=== PATIENT | female | born 1935 | race Caucasian/White ===

== ENCOUNTER → 2023-04-28 06:28 | Day surgery (SDC) | payer BC, SELFPAY ==
[2023-04-28 08:16] LABS: Glucose - Point of Care 181 mg/dl (70-99)
== END ==
LOC: GI 06:28
PROVIDERS: ATTENDING PHYSICIAN Internal Medicine
DX: R15.9 Full incontinence of feces (principal); R19.4 Change in bowel habit; K64.9 Unspecified hemorrhoids
CPT/HCPCS: 45330; 82962